=== PATIENT | female | born 1985 | race Caucasian/White ===

== ENCOUNTER 2021-12-15 06:00 | Outpatient (RCR) | payer OTHER, SELFPAY | END 2021-12-19 23:59 | disposition home or self-care (01) | LOC: MOT 06:00 | PROVIDERS: Referring Provider Physician Assistant Surgical; Visit Provider Physician Assistant Surgical | DX: S41.102D Unspecified open wound of left upper arm, subsequent encounter (principal) | CPT/HCPCS: 97110; 97167 ==

== ENCOUNTER 2021-12-20 06:00 | Outpatient (RCR) | payer OTHER, SELFPAY | END 2022-01-19 23:59 | disposition home or self-care (01) | LOC: MOT 06:00 | PROVIDERS: Visit Provider Physician Assistant Surgical | DX: S54.02XD Injury of ulnar nerve at forearm level, left arm, subsequent encounter (principal); S41.112D Laceration without foreign body of left upper arm, subsequent encounter; X58.XXXD Exposure to other specified factors, subsequent encounter | CPT/HCPCS: 97022; 97035; 97110; 97140; 97530 ==

== ENCOUNTER 2022-01-20 06:00 | Outpatient (RCR) | payer OTHER, SELFPAY | END 2022-02-18 23:59 | disposition home or self-care (01) | LOC: MOT 06:00 | PROVIDERS: Visit Provider Physician Assistant Surgical | DX: S41.112D Laceration without foreign body of left upper arm, subsequent encounter (principal); S44.02XD Injury of ulnar nerve at upper arm level, left arm, subsequent encounter; X58.XXXD Exposure to other specified factors, subsequent encounter | CPT/HCPCS: 97022; 97035; 97110; 97140 ==

== ENCOUNTER 2022-02-19 06:00 | Outpatient (RCR) | payer OTHER, SELFPAY | END 2022-03-21 23:59 | disposition home or self-care (01) | LOC: MOT 06:00 | PROVIDERS: Visit Provider Physician Assistant Surgical | DX: S59.912D Unspecified injury of left forearm, subsequent encounter (principal); W55.89XD Other contact with other mammals, subsequent encounter | CPT/HCPCS: 97018; 97035; 97110; 97140 ==

== ENCOUNTER 2022-03-22 06:00 | Outpatient (RCR) | payer OTHER, SELFPAY | END 2022-04-20 23:59 | disposition home or self-care (01) | LOC: MOT 06:00 | PROVIDERS: Visit Provider Physician Assistant Surgical | DX: S59.912D Unspecified injury of left forearm, subsequent encounter (principal); W55.89XD Other contact with other mammals, subsequent encounter | CPT/HCPCS: 97018; 97022; 97035; 97110; 97140 ==

== ENCOUNTER 2022-04-21 06:00 | Outpatient (RCR) | payer OTHER, SELFPAY | END 2022-05-21 23:59 | disposition home or self-care (01) | LOC: MOT 06:00 | PROVIDERS: Visit Provider Physician Assistant Surgical | DX: S51.802D Unspecified open wound of left forearm, subsequent encounter (principal); Z98.890 Other specified postprocedural states; W55.89XD Other contact with other mammals, subsequent encounter | CPT/HCPCS: 97022; 97110; 97140; 97530 ==

== ENCOUNTER 2022-05-22 06:00 | Outpatient (RCR) | payer OTHER, SELFPAY | END 2022-06-21 23:59 | disposition home or self-care (01) | LOC: MOT 06:00 | PROVIDERS: Visit Provider Physician Assistant Surgical | DX: S59.912D Unspecified injury of left forearm, subsequent encounter (principal); W55.89XD Other contact with other mammals, subsequent encounter | CPT/HCPCS: 97022; 97035; 97110; 97140 ==

== ENCOUNTER 2022-06-22 06:00 | Outpatient (RCR) | payer OTHER, SELFPAY | END 2022-07-19 23:59 | disposition home or self-care (01) | LOC: MOT 06:00 | PROVIDERS: Visit Provider Physician Assistant Surgical | DX: R53.1 Weakness (principal); S54.02XD Injury of ulnar nerve at forearm level, left arm, subsequent encounter; X58.XXXD Exposure to other specified factors, subsequent encounter | CPT/HCPCS: 97022; 97035; 97110; 97140 ==

== ENCOUNTER 2022-07-20 06:00 | Outpatient (RCR) | payer OTHER, SELFPAY | END 2022-08-19 23:59 | disposition home or self-care (01) | LOC: MOT 06:00 | PROVIDERS: Visit Provider Physical Medicine & Rehabilitation | DX: R29.898 Other symptoms and signs involving the musculoskeletal system (principal); R20.2 Paresthesia of skin; S54.02XD Injury of ulnar nerve at forearm level, left arm, subsequent encounter; X58.XXXD Exposure to other specified factors, subsequent encounter | CPT/HCPCS: 97022; 97035; 97110; 97140 ==

== ENCOUNTER 2022-08-20 06:00 | Outpatient (RCR) | payer OTHER, SELFPAY | END 2022-09-18 23:59 | disposition home or self-care (01) | LOC: MOT 06:00 | PROVIDERS: Visit Provider Physical Medicine & Rehabilitation | DX: R29.898 Other symptoms and signs involving the musculoskeletal system (principal); R20.2 Paresthesia of skin; S54.02XD Injury of ulnar nerve at forearm level, left arm, subsequent encounter; Y99.9 Unspecified external cause status | CPT/HCPCS: 97018; 97022; 97035; 97110; 97140 ==

== ENCOUNTER 2022-09-19 06:00 | Outpatient (RCR) | payer OTHER, SELFPAY | END 2022-10-19 23:59 | disposition home or self-care (01) | LOC: MOT 06:00 | PROVIDERS: Visit Provider Physical Medicine & Rehabilitation | DX: G56.22 Lesion of ulnar nerve, left upper limb (principal) | CPT/HCPCS: 97035; 97110; 97140 ==

== ENCOUNTER 2022-10-20 06:00 | Outpatient (RCR) | payer OTHER, SELFPAY | END 2022-11-18 23:59 | disposition home or self-care (01) | LOC: MOT 06:00 | PROVIDERS: Visit Provider Physical Medicine & Rehabilitation | DX: R29.898 Other symptoms and signs involving the musculoskeletal system (principal); R20.2 Paresthesia of skin; S54.02XA Injury of ulnar nerve at forearm level, left arm, initial encounter; X58.XXXA Exposure to other specified factors, initial encounter | CPT/HCPCS: 97022; 97110; 97112; 97140 ==

== ENCOUNTER 2022-11-19 06:00 | Outpatient (RCR) | payer OTHER, SELFPAY | END 2022-12-19 23:59 | disposition home or self-care (01) | LOC: MOT 06:00 | PROVIDERS: PCP Surgery Surgery of the Hand; Visit Provider Physical Medicine & Rehabilitation | DX: R29.898 Other symptoms and signs involving the musculoskeletal system (principal); R20.2 Paresthesia of skin; S54.02XA Injury of ulnar nerve at forearm level, left arm, initial encounter; X58.XXXA Exposure to other specified factors, initial encounter | CPT/HCPCS: 97110; 97140 ==

== ENCOUNTER 2022-12-20 06:00 | Outpatient (RCR) | payer OTHER, SELFPAY | END 2023-01-19 23:59 | disposition home or self-care (01) | LOC: MOT 06:00 | PROVIDERS: PCP Surgery Surgery of the Hand; Visit Provider Physical Medicine & Rehabilitation | DX: G56.22 Lesion of ulnar nerve, left upper limb (principal) | CPT/HCPCS: 97110; 97140 ==

== ENCOUNTER 2023-01-20 06:00 | Outpatient (RCR) | payer OTHER, SELFPAY | END 2023-02-18 23:59 | disposition home or self-care (01) | LOC: MOT 06:00 | PROVIDERS: PCP Surgery Surgery of the Hand; Visit Provider Physical Medicine & Rehabilitation | DX: G56.22 Lesion of ulnar nerve, left upper limb (principal); M79.2 Neuralgia and neuritis, unspecified | CPT/HCPCS: 97110; 97140 ==

== ENCOUNTER 2023-02-23 13:27 | Outpatient (RCR) | payer OTHER, SELFPAY | END 2023-03-21 23:59 | disposition home or self-care (01) | LOC: MOT 13:27 | PROVIDERS: PCP Surgery Surgery of the Hand; Visit Provider Physical Medicine & Rehabilitation | DX: G56.22 Lesion of ulnar nerve, left upper limb (principal); M79.2 Neuralgia and neuritis, unspecified | CPT/HCPCS: 97022; 97110; 97140 ==

== ENCOUNTER 2023-03-22 06:00 | Outpatient (RCR) | payer OTHER, SELFPAY | END 2023-04-20 23:59 | disposition home or self-care (01) | LOC: MOT 06:00 | PROVIDERS: PCP Surgery Surgery of the Hand; Visit Provider Anesthesiology | DX: M79.2 Neuralgia and neuritis, unspecified (principal); R29.898 Other symptoms and signs involving the musculoskeletal system | CPT/HCPCS: 97022; 97110; 97140 ==

== ENCOUNTER 2023-04-21 06:00 | Outpatient (RCR) | payer OTHER, SELFPAY | END 2023-04-26 23:59 | disposition home or self-care (01) | LOC: MOT 06:00 | PROVIDERS: PCP Surgery Surgery of the Hand; Visit Provider Anesthesiology | DX: G56.22 Lesion of ulnar nerve, left upper limb (principal) | CPT/HCPCS: 97110; 97140; 97166 ==

== ENCOUNTER 2023-05-16 06:00 | Outpatient (RCR) | payer OTHER, SELFPAY | END 2023-05-21 23:59 | disposition home or self-care (01) | LOC: MOT 06:00 | PROVIDERS: PCP Surgery Surgery of the Hand; Visit Provider Surgery Surgery of the Hand | DX: G56.22 Lesion of ulnar nerve, left upper limb (principal) | CPT/HCPCS: 97110; 97166 ==

== ENCOUNTER 2023-05-22 06:00 | Outpatient (RCR) | payer OTHER, SELFPAY | END 2023-06-21 23:59 | disposition home or self-care (01) | LOC: MOT 06:00 | PROVIDERS: PCP Surgery Surgery of the Hand; Visit Provider Surgery Surgery of the Hand | DX: G56.22 Lesion of ulnar nerve, left upper limb (principal) | CPT/HCPCS: 97018; 97022; 97110; 97140 ==

== ENCOUNTER 2023-06-22 06:00 | Outpatient (RCR) | payer OTHER, SELFPAY | END 2023-07-20 23:59 | disposition home or self-care (01) | LOC: MOT 06:00 | PROVIDERS: PCP Surgery Surgery of the Hand; Visit Provider Surgery Surgery of the Hand | DX: S54.02XD Injury of ulnar nerve at forearm level, left arm, subsequent encounter (principal); X58.XXXD Exposure to other specified factors, subsequent encounter; G56.22 Lesion of ulnar nerve, left upper limb; G56.12 Other lesions of median nerve, left upper limb | CPT/HCPCS: 97110 ==

== ENCOUNTER 2023-07-21 06:00 | Outpatient (RCR) | payer OTHER, SELFPAY | END 2023-08-20 23:59 | disposition home or self-care (01) | LOC: MOT 06:00 | PROVIDERS: PCP Surgery Surgery of the Hand; Visit Provider Surgery Surgery of the Hand | DX: G56.22 Lesion of ulnar nerve, left upper limb (principal) | CPT/HCPCS: 97022; 97110 ==

== ENCOUNTER 2023-08-21 06:00 | Outpatient (RCR) | payer OTHER, SELFPAY | END 2023-09-19 23:59 | disposition home or self-care (01) | LOC: MOT 06:00 | PROVIDERS: PCP Surgery Surgery of the Hand; Visit Provider Surgery Surgery of the Hand | DX: G56.22 Lesion of ulnar nerve, left upper limb (principal) | CPT/HCPCS: 97022; 97035; 97110 ==

== ENCOUNTER 2023-09-20 06:00 | Outpatient (RCR) | payer OTHER, SELFPAY | END 2023-10-20 23:59 | disposition home or self-care (01) | LOC: MOT 06:00 | PROVIDERS: PCP Surgery Surgery of the Hand; Visit Provider Surgery Surgery of the Hand | DX: G56.22 Lesion of ulnar nerve, left upper limb (principal) | CPT/HCPCS: 97022; 97110 ==

== ENCOUNTER 2023-10-21 06:00 | Outpatient (RCR) | payer OTHER, SELFPAY | END 2023-11-19 23:59 | disposition home or self-care (01) | LOC: MOT 06:00 | PROVIDERS: PCP Surgery Surgery of the Hand; Visit Provider Surgery Surgery of the Hand | DX: G56.22 Lesion of ulnar nerve, left upper limb (principal) | CPT/HCPCS: 97022; 97110 ==

== ENCOUNTER 2023-11-20 06:00 | Outpatient (RCR) | payer OTHER, SELFPAY | END 2023-12-20 23:59 | disposition home or self-care (01) | LOC: MOT 06:00 | PROVIDERS: PCP Surgery Surgery of the Hand; Visit Provider Surgery Surgery of the Hand | DX: Z47.89 Encounter for other orthopedic aftercare (principal) | CPT/HCPCS: 97110 ==

== ENCOUNTER 2023-12-21 06:00 | Outpatient (RCR) | payer OTHER, SELFPAY | END 2024-01-20 18:00 | disposition home or self-care (01) | LOC: MOT 06:00 | PROVIDERS: PCP Surgery Surgery of the Hand; Visit Provider Surgery Surgery of the Hand | DX: G56.22 Lesion of ulnar nerve, left upper limb (principal) | CPT/HCPCS: 97110 ==

== ENCOUNTER 2024-01-21 06:00 | Outpatient (RCR) | payer OTHER, SELFPAY | END 2024-02-19 23:59 | disposition home or self-care (01) | LOC: MOT 06:00 | PROVIDERS: PCP Surgery Surgery of the Hand; Visit Provider Surgery Surgery of the Hand | DX: G56.22 Lesion of ulnar nerve, left upper limb (principal) | CPT/HCPCS: 97110 ==

== ENCOUNTER 2024-02-20 06:00 | Outpatient (RCR) | payer OTHER, SELFPAY | END 2024-03-21 23:59 | disposition home or self-care (01) | LOC: MOT 06:00 | PROVIDERS: Visit Provider Surgery Surgery of the Hand | DX: G56.22 Lesion of ulnar nerve, left upper limb (principal) | CPT/HCPCS: 97110 ==

== ENCOUNTER 2024-02-27 14:46 | Outpatient (RCR) | payer OTHER, SELFPAY | END 2024-03-21 23:59 | disposition home or self-care (01) | LOC: SPT 14:46 | PROVIDERS: Visit Provider Physical Medicine & Rehabilitation | DX: M54.6 Pain in thoracic spine (principal); M54.50 Low back pain, unspecified | CPT/HCPCS: 97110; 97161 ==

== ENCOUNTER 2024-03-22 06:00 | Outpatient (RCR) | payer OTHER, SELFPAY | END 2024-04-20 23:59 | disposition home or self-care (01) | LOC: SPT 06:00 | PROVIDERS: Visit Provider Physical Medicine & Rehabilitation | DX: M54.6 Pain in thoracic spine (principal); M54.50 Low back pain, unspecified | CPT/HCPCS: 97110 ==